=== PATIENT | female | born 1990 | race Caucasian/White ===

== ENCOUNTER 2020-06-10 15:41 | Emergency (ER) | payer OTHER, SELFPAY ==
[2020-06-10 15:57] VITALS: BP 122/67; PULSE 77; RESP 16; TEMP 37.4; O2SAT 100
--- NOTE | 2020-06-10 16:12 | ED.SKABFB ---
HPI - Skin/Abscess/Foreign Bdy General Chief complaint: Skin/Abscess/Foreign Body Stated complaint: insect bite Time Seen by Provider: 06/10/20 16:12 Source: patient Mode of arrival: ambulatory Limitations: no limitations History of Present Illness HPI narrative: Jennifer Dillon is a 29 yo female with PMH of aortic dissection, migraines, HTN, who comes with an insect bite, that occurred 2 weeks ago and getting better. Related Data Allergies Allergy/AdvReac Type Severity Reaction Status Date / Time amoxicillin Allergy Unknown Verified 08/31/17 14:13 sumatriptan Allergy Unknown Verified 08/31/17 14:13 Review of Systems Review of Systems: Narrative: CONSTITUTIONAL: Denies fever, chills, sweats. EYES: Denies visual changes, redness, discharge. ENT: Denies rhinorrhea, congestion, sore throat, otalgia. CARDIOVASCULAR: Denies chest pain, palpitations, edema. RESPIRATORY: Denies dyspnea, wheezing, cough GASTROINTESTINAL: Denies abdominal pain, nausea, vomiting, diarrhea. GENITOURINARY: Denies dysuria, hematuria, abnormal discharge SKIN: Denies rash or itching. One by one area on right upper thigh that is mildly indurated and also paretic NEUROLOGIC: Denies numbness, or focal weakness. PSYCHIATRIC: Denies anxiety or depression. [facility] Surgical History Surgical History (Updated 06/10/20 @ 16:22 by Roxanne Jimenez CNP) History of repair of dissection of abdominal aorta Family History Family History Other CVD (cardiovascular disease) Social History Social History (Updated 06/10/20 @ 16:23 by Roxanne Jimenez CNP) Smoking status: Former smoker Alcohol intake: never Comments At time of signature, I agree with nursing past medical, surgical, social and family history. There is no relevant family history pertinent to the presenting complaint. Exam Narrative: Exam Narrative: GENERAL: This is a well-nourished, well-developed patient, in mild distress. HEAD: normocephalic, atraumatic. EYES: Sclera clear/white. Vision is grossly intact. EARS: External ears normal,. Hearing grossly intact. NOSE: External nose normal without nasal discharge, nares without redness, no rhinorrhea. THROAT: Mucous membranes moist, NECK: Neck supple, CARDIOVASCULAR: Regular rate and rhythm without murmurs, gallops, or rubs. RESPIRATORY: Clear to auscultation. Breath sounds equal bilaterally. No wheezes, rales, or rhonchi. GASTROINTESTINAL: Abdomen soft, SKIN: warm, intact with only 1 area of induration on anterior upper thigh, is paretic, mild tenderness to palpation, no discharge, no fluctuance NEURO: awake, alert, and oriented to person, place and time. There were no obvious focal neurologic abnormalities. Steady gait EXTREMITIES: Normal range of motion. BACK: Nontender without deformity Course Course Emergency Course: Neosporin to lesion on leg cover with Band-Aid Benadryl 25 mg twice daily Follow-up with PCP Vital Signs Vital signs: Vital Signs Temperature 99.3 F 06/10/20 15:57 Pulse Rate 77 06/10/20 15:57 Respiratory Rate 16 06/10/20 15:57 Blood Pressure 122/67 06/10/20 15:57 Pulse Oximetry 100 06/10/20 15:57 Temperature 99.3 F 06/10/20 15:57 Pulse Rate 77 06/10/20 15:57 Respiratory Rate 16 06/10/20 15:57 Blood Pressure 122/67 06/10/20 15:57 Pulse Oximetry 100 06/10/20 15:57 MDM - Skin/Abscess/Foreign Bdy Differential Diagnosis Differential diagnosis: Likely abscess of skin or subcutaneous tissue, cellulitis, contact dermatitis and other Discharge Plan Discharge Clinical Impression: Insect bites Qualifiers: Encounter type: initial encounter Site of insect bite: thigh Laterality: right Qualified Code(s): S70.361A - Insect bite (nonvenomous), right thigh, initial encounter Patient Disposition: Home, Self-Care Condition: Stable Instructions: Insect Bite or Sting (ED) Additional Instructions: Do not scratch area
== END 2020-06-10 16:31 | disposition home or self-care (01) ==
PROVIDERS: Emergency Provider Nurse Practitioner
DX: S70.361A Insect bite (nonvenomous), right thigh, initial encounter (principal); W57.XXXA Bitten or stung by nonvenomous insect and other nonvenomous arthropods, initial encounter; Z87.891 Personal history of nicotine dependence
CPT/HCPCS: 99213; G0463

== ENCOUNTER 2020-09-11 13:00 | Emergency (ER) | payer OTHER, SELFPAY ==
--- NOTE | 2020-09-11 13:03 | ED.GENADULT ---
HPI - General Adult General Chief complaint: Neck Pain/Injury Stated complaint: Neck Pain Time Seen by Provider: 09/11/20 13:03 Source: patient Mode of arrival: ambulatory Limitations: no limitations History of Present Illness HPI narrative: 30-year-old female patient resents the psychiatric with plaints posterior neck pain the past 3 days. Patient states she does have history of degenerative disc disease and cervical spine. Patient states she did not injure her neck that she is aware of. Patient states that the pain does radiate up to the head and has been causing headaches. Denies any numbness or tingling down the legs. Denies any falling. Denies any loss of bowel or bladder control. Related Data Home Medications Medication Instructions Recorded Confirmed escitalopram oxalate mg 09/11/20 lisinopril 09/11/20 metoprolol succinate PO 09/11/20 omeprazole 09/11/20 venlafaxine mg PO 09/11/20 Allergies Allergy/AdvReac Type Severity Reaction Status Date / Time amoxicillin Allergy Unknown Verified 08/31/17 14:13 sumatriptan Allergy Unknown Verified 08/31/17 14:13 Review of Systems Review of Systems: Narrative: CONSTITUTIONAL: Denies fever, chills, or sweats. EYES: Denies visual changes, redness, or discharge. ENT: Denies rhinorrhea, congestion, sore throat, or otalgia. CARDIOVASCULAR: Denies chest pain, palpitations, or edema. RESPIRATORY: Denies cough or dyspnea. GASTROINTESTINAL: Denies abdominal pain, nausea, vomiting, or diarrhea. GENITOURINARY: Denies dysuria or hematuria. SKIN: Denies rash or itching. MUSCULOSKELETAL: Denies back pain, joint pain, or myalgia. Positive neck pain x3 days NEUROLOGIC: Denies headache, numbness, or weakness. PSYCHIATRIC: Denies anxiety or depression. [facility] Past Medical History Medical History (Updated 09/11/20 @ 13:29 by TELMA Hernandez) Anemia Anxiety Aortic dissection Female reproductive system disorder Right ovary removed secondary to ruptured appendectomy HTN (hypertension) IBS (irritable bowel syndrome) Migraine headache Musculoskeletal disorder Plica band right knee Surgical History Surgical History (Updated 09/11/20 @ 13:14 by TELMA Hernandez) History of appendectomy History of repair of dissection of abdominal aorta Hx of cholecystectomy Family History Family History Other CVD (cardiovascular disease) Social History Social History Smoking status: Former smoker Alcohol intake: never Comments At the time of my signature I agree with nursing past medical history, surgical, social, and family history. There is no relevant family history pertinent to the presenting complaint. Exam Narrative: Exam Narrative: GENERAL: Well-appearing, well-nourished, and in no acute distress. HEAD: Normocephalic, atraumatic. EYES: PERRLA and EOMI. ENT: Nares clear, no rhinorrhea or epistaxis. Mucous membranes moist. NECK: Supple, no lymphadenopathy. No surface trauma, patient has obvious spasms noted at the base of bilateral neck but no cervical spine tenderness. Patient does have pain that increases with turning the head to the left. Patient states that the pain when turning the head to the left radiates to the right side of the neck. Trachea midline. No subq emphysema or crepitus. No maliha tenderness, step-offs or deformity to firm Palpation at posterior midline. FROM without limitation or pain, normal flexion, extension,Lateral bending, rotation, and axial load. CHEST: Clear to auscultation. No respiratory distress. HEART: Regular rate and rhythm. No murmur heard. Normal peripheral pulses. ABDOMEN: Soft, nontender, nondistended, normal active bowel sounds. EXTREMITIES: Normal range of motion. No edema. SKIN: Warm, dry, no rash. NEURO: No focal deficits. Alert and oriented x3. Course Vital Signs Vital signs: Vital Signs Temperature 37
[2020-09-11 13:11] VITALS: BP 126/57; PULSE 89; RESP 16; TEMP 37.5; O2SAT 100
== END 2020-09-11 13:34 | disposition home or self-care (01) ==
PROVIDERS: Emergency Provider Nurse Practitioner Family
DX: G24.3 Spasmodic torticollis (principal); Z87.891 Personal history of nicotine dependence; I10 Essential (primary) hypertension; F41.9 Anxiety disorder, unspecified; M50.30 Other cervical disc degeneration, unspecified cervical region
CPT/HCPCS: 99213; G0463

== ENCOUNTER 2022-02-20 17:41 | Emergency (ER) | payer OTHER, SELFPAY ==
[2022-02-20 17:50] VITALS: BP 96/63; PULSE 80; RESP 16; TEMP 37.3; O2SAT 99
--- NOTE | 2022-02-20 18:18 | ED.URI ---
HPI - URI/Sore Throat General Chief Complaint: Upper Respiratory Infection Stated Complaint: Runny Nose, Sore Throat Time Seen by Provider: 02/20/22 17:58 Source: patient and RN notes reviewed Mode of arrival: ambulatory Limitations: no limitations History of Present Illness HPI Narrative: Patient presents today complaining of illness for the past 2 weeks to include headache, sore throat, congestion rhinorrhea, cough, fatigue. States she has had a fever up to 101, last was last night. She finished a Medrol Dosepak last week and that was prescribed by her PCP. She has also had a recent negative COVID-19 test, and was told by her PCP to come into urgent care for strep test. She has been taking Tylenol and Coricidin with mild relief. MD elicited complaint: fever, cough and sore throat Related Data Home Medications Medication Instructions Recorded Confirmed escitalopram oxalate 20 mg PO DAILY 09/11/20 02/20/22 lisinopril 20 mg PO DAILY 09/11/20 02/20/22 omeprazole 40 mg PO DAILY 09/11/20 02/20/22 venlafaxine 75 mg PO DIRECTED 09/11/20 02/20/22 metoprolol tartrate 100 mg PO DAILY 02/20/22 02/20/22 prochlorperazine maleate 10 mg PO DIRECTED 02/20/22 02/20/22 trazodone 50 mg PO DIRECTED 02/20/22 02/20/22 Allergies Allergy/AdvReac Type Severity Reaction Status Date / Time amoxicillin Allergy Unknown Rash Verified 02/20/22 17:43 sumatriptan Allergy Unknown Rash Verified 02/20/22 17:43 Review of Systems Review of Systems: CONSTITUTIONAL: Denies body aches, chills, or sweats.+ Fever, fatigue EYES: Denies visual changes, redness, or discharge. ENT: Denies otalgia.+ Sore throat, congestion, rhinorrhea CARDIOVASCULAR: Denies chest pain, palpitations, or edema. RESPIRATORY: Denies dyspnea.+ Cough GASTROINTESTINAL: Denies abdominal pain, nausea, vomiting, or diarrhea. GENITOURINARY: Denies dysuria or hematuria. SKIN: Denies rash, itching, or wounds. MUSCULOSKELETAL: Denies back pain, joint pain, or myalgia. NEUROLOGIC: Denies numbness, tingling, or weakness.+ Headache PSYCH: Denies depression or anxiety. [facility] Past Medical History Medical History (Updated 02/20/22 @ 18:21 by Marisol Gould, TELMA, ) Anemia Anxiety Aortic dissection Female reproductive system disorder Right ovary removed secondary to ruptured appendectomy HTN (hypertension) IBS (irritable bowel syndrome) Migraine headache Musculoskeletal disorder Plica band right knee Surgical History Surgical History (Updated 02/20/22 @ 18:19 by Marisol Gould, [employer], ) H/O adenoidectomy History of appendectomy History of repair of dissection of abdominal aorta Hx of cholecystectomy Family History Family History Other CVD (cardiovascular disease) Social History Social History Smoking status: Former smoker Alcohol intake: never Comments At time of signature, I have reviewed and agree with nursing past medical, surgical, social and family history unless otherwise noted. Please see nursing chart for further information. There is no relevant family history pertinent to the presenting complaint Exam Narrative: GENERAL: Well-appearing, well-nourished, and in no acute distress. HEAD: Normocephalic, atraumatic. EYES: EOMI. No redness or drainage. Conjunctivae normal. ENT: Mucous membranes pink and moist. Nares clear. No rhinorrhea. TMs normal bilaterally. Throat normal. Uvula midline. NECK: Normal AROM. Supple. No lymphadenopathy. CHEST: No respiratory distress. Clear to auscultation. HEART: Regular rate and rhythm. No murmur appreciated. Normal peripheral pulses. EXTREMITIES: Normal range of motion. No edema. SKIN: Warm, dry, no rash. Capillary refill normal. Normal skin turgor. NEURO: No focal deficits. Alert and oriented x3. Gait steady. PSYCH: Normal affect. No signs of depression or anxiety. Course Co
== END 2022-02-20 18:31 | disposition home or self-care (01) ==
PROVIDERS: Emergency Provider Nurse Practitioner
DX: J02.0 Streptococcal pharyngitis (principal); Z87.891 Personal history of nicotine dependence; I10 Essential (primary) hypertension; F41.9 Anxiety disorder, unspecified
CPT/HCPCS: 87880; 99213; G0463

== ENCOUNTER 2022-09-21 16:42 | Emergency (ER) | payer OTHER, SELFPAY ==
[2022-09-21 16:54] VITALS: BP 141/82; PULSE 130; RESP 16; TEMP 36.9; O2SAT 98
--- NOTE | 2022-09-21 17:11 | ED.URI ---
HPI - URI/Sore Throat General Chief Complaint: Upper Respiratory Infection Stated Complaint: sore throat /sob Time Seen by Provider: 09/21/22 17:16 Source: patient and RN notes reviewed Mode of arrival: ambulatory Limitations: no limitations History of Present Illness HPI Narrative: 32 y/o female with history of aortic dissection, HTN presented for c/o sore throat, cough, and chest tightness with cough. States it feels like she cannot take a deep breath. Endorses bilateral ear pain and body aches. Denies sick contacts. Has not taken anything for symptoms. MD elicited complaint: cough Related Data Home Medications Medication Instructions Recorded Confirmed omeprazole 40 mg capsule,delayed 40 mg PO DAILY 09/11/20 02/20/22 release venlafaxine 75 mg capsule,extended 75 mg PO DIRECTED 09/11/20 02/20/22 release 24 hr metoprolol tartrate 100 mg tablet 100 mg PO DAILY 02/20/22 02/20/22 prochlorperazine maleate 10 mg 10 mg PO DIRECTED 02/20/22 02/20/22 tablet trazodone 50 mg tablet 50 mg PO DIRECTED 02/20/22 02/20/22 aspirin 81 mg chewable tablet 09/21/22 dicyclomine 10 mg capsule mg 09/21/22 ondansetron 4 mg disintegrating mg 09/21/22 tablet Allergies Allergy/AdvReac Type Severity Reaction Status Date / Time amoxicillin Allergy Unknown Rash Verified 09/21/22 16:45 sumatriptan Allergy Unknown Rash Verified 09/21/22 16:45 Review of Systems Review of Systems: CONSTITUTIONAL: Endorses malaise, chills, sweats, fever EYES: Denies visual changes, redness, or discharge ENT: per HPI CARDIOVASCULAR: Denies chest pain, palpitations, edema RESPIRATORY: Reports cough, post nasal drainage. Denies dyspnea GASTROINTESTINAL: Denies abdominal pain, nausea, vomiting, diarrhea SKIN: Denies rash or itching MUSCULOSKELETAL: Endorses myalgia NEUROLOGIC: Denies headache PMFSH Past Medical History Medical History Anemia Anxiety Aortic dissection Female reproductive system disorder Right ovary removed secondary to ruptured appendectomy HTN (hypertension) IBS (irritable bowel syndrome) Migraine headache Musculoskeletal disorder Plica band right knee Surgical History Surgical History H/O adenoidectomy History of appendectomy History of repair of dissection of abdominal aorta Hx of cholecystectomy Family History Family History Other CVD (cardiovascular disease) Social History Social History Smoking status: Former smoker Alcohol intake: never Exam Narrative: GENERAL: Ill-appearing, nontoxic EYES: PERRLA, conjunctivae clear ENT: Mucous membranes moist. TMs pearly brothers with dull light reflex bilaterally; no tragal tenderness. Oropharynx erythematous without lesions or exudate, no drooling, no hoarseness, no trismus, uvula midline. NECK: Supple. No lymphadenopathy CHEST: Clear to auscultation, breath sounds equal. No wheezing, rhonchi, rales, or stridor. No respiratory distress, speaks in full sentences. HEART: Regular rate and rhythm. No murmur heard. SKIN: Warm, dry, no rash. NEURO: Alert and oriented x3. Course Course Emergency Course: Patient is aware of diagnosis, understands and agrees to treatment plan. Anticipatory guidance given. Patient agrees to follow-up as directed and is aware of reasons to seek care at the emergency department. Portions of this record may have been created with voice recognition software Level of Care: Express Care Visit Vital Signs Vital signs: Vital Signs Temperature 98.4 F 09/21/22 16:54 Pulse Rate 130 H 09/21/22 16:54 Respiratory Rate 16 09/21/22 16:54 Blood Pressure 141/82 H 09/21/22 16:54 Pulse Oximetry 98 09/21/22 16:54 Oxygen Delivery Room Air 09/21/22 16:54 Temperature 98.4 F 09/21/22 16:54
== END 2022-09-21 17:45 | disposition home or self-care (01) ==
PROVIDERS: Emergency Provider Nurse Practitioner Family
DX: J06.9 Acute upper respiratory infection, unspecified (principal); Z20.822 Contact with and (suspected) exposure to COVID-19; I10 Essential (primary) hypertension; F41.9 Anxiety disorder, unspecified
CPT/HCPCS: 87081; 87426; 87804; 87880; 99213; C9803; G0463

== ENCOUNTER 2023-01-18 17:06 | Emergency (ER) | payer OTHER, SELFPAY ==
--- NOTE | ~2023-01-18 | XR_ITS ---
EXAM: XR ankle RT min 3V, XR foot RT min 3V DATE: 01/18/2023 17:34 HISTORY: STEPPED ON OBJECT, ANKLE SWELLING . COMPARISON: None available. FINDINGS: Normal mineralization. No fracture or dislocation. No lytic or blastic lesion. Joint space s are maintained. No erosion or periosteal change. Soft tissues within normal limits. IMPRESSION: No acute osseous finding in the right foot or ankle. Reviewed, dictated and finalized at location [facility] IMPRESSION: No acute osseous finding in the right foot or ankle.
--- NOTE | 2023-01-18 17:08 | ED.LOWEXIN ---
HPI - Extremity Injury (Lower) General Chief Complaint: Extremity Injury, Lower Stated Complaint: Right/Ankle Foot Pain Time Seen by Provider: 01/18/23 17:16 Source: patient, RN notes reviewed and old records reviewed Mode of arrival: ambulatory Limitations: no limitations History of Present Illness HPI Narrative: 32-year-old female presents to the [facility] with right ankle swelling laterally and bruising to the bottom of the right foot. Patient states that she stepped on a with a couple of days ago it is now bruised, swollen. And states she does not know why her lateral ankle is swollen. No erythema, increased warmth. Positive pedal pulse. Sensation intact. Capillary refill under 2 seconds Onset (ago): day(s) Related Data Home Medications Medication Instructions Recorded Confirmed omeprazole 40 mg capsule,delayed 40 mg PO DAILY 09/11/20 02/20/22 release venlafaxine 75 mg capsule,extended 75 mg PO DIRECTED 09/11/20 02/20/22 release 24 hr metoprolol tartrate 100 mg tablet 100 mg PO DAILY 02/20/22 02/20/22 aspirin 81 mg chewable tablet 09/21/22 dicyclomine 10 mg capsule mg 09/21/22 famotidine 20 mg tablet mg 01/18/23 Allergies Allergy/AdvReac Type Severity Reaction Status Date / Time amoxicillin Allergy Unknown Rash Verified 01/18/23 17:16 sumatriptan Allergy Unknown Rash Verified 01/18/23 17:16 levofloxacin [From Levaquin] Allergy Other Verified 01/18/23 17:16 Review of Systems Review of Systems: All systems reviewed & are unremarkable except as noted in HPI and below Constitutional: Constitutional: Reports no additional constitutional complaints Eyes: Eyes: Reports no additional eye complaints ENT: Reports system reviewed and no additional complaints, except as documented Cardiovascular: Cardiovascular: Reports no additional cardiovascular complaints, Denies chest pain and Denies dyspnea Respiratory: Respiratory: Reports no additional respiratory complaints, Denies chest congestion, Denies cough and Denies dyspnea Gastrointestinal: Gastrointestinal: Reports no additional gastrointestinal complaints, Denies abdominal pain, Denies nausea and Denies vomiting Musculoskeletal: Musculoskeletal: Reports as per HPI and Reports joint swelling (Right lateral ankle) Integumentary/Breasts: Skin/Breast: Reports system reviewed and no additional complaints, except as docu Neurologic: Reports system reviewed and no additional complaints, except as documented Psychiatric: Psychiatric: Reports no additional psychiatric complaints Allergic/Immunologic: Allergic/Immunologic: Reports no additional allergic/immunologic complaints PMFSH Past Medical History Medical History Anemia Anxiety Aortic dissection Female reproductive system disorder Right ovary removed secondary to ruptured appendectomy HTN (hypertension) IBS (irritable bowel syndrome) Migraine headache Musculoskeletal disorder Plica band right knee Surgical History Surgical History H/O adenoidectomy History of appendectomy History of repair of dissection of abdominal aorta Hx of cholecystectomy Family History Family History Other CVD (cardiovascular disease) Social History Social History Smoking status: Former smoker Alcohol intake: never Comments At the time of my signature, I reviewed and agree with the nursing past medical, surgical, social, and family history. There is no relevant family history pertinent to the patient complaint. Exam Const: General: cooperative, healthy appearing, comfortable, no acute distress, well developed, alert and well nourished Nutritional Appearance: well nourished Orientation/consciousness: patient oriented x3 Limitations: no limitations HENMT: Head: normal to inspection Ea
[2023-01-18 17:14] VITALS: BP 118/83; PULSE 108; RESP 18; TEMP 36.4; O2SAT 100
[2023-01-18 17:17] VITALS: BP 118/83; PULSE 108; RESP 18; TEMP 36.4; O2SAT 100
== END 2023-01-18 18:06 | disposition home or self-care (01) ==
PROVIDERS: Emergency Provider Nurse Practitioner
DX: S93.401A Sprain of unspecified ligament of right ankle, initial encounter (principal); S96.911A Strain of unspecified muscle and tendon at ankle and foot level, right foot, initial encounter; S90.31XA Contusion of right foot, initial encounter; W22.8XXA Striking against or struck by other objects, initial encounter; I10 Essential (primary) hypertension; F41.9 Anxiety disorder, unspecified; Z87.891 Personal history of nicotine dependence
CPT/HCPCS: 73610; 73630; 99213; G0463

== ENCOUNTER 2023-05-02 16:26 | Emergency (ER) | payer OTHER, SELFPAY ==
[2023-05-02 16:34] VITALS: BP 110/74; PULSE 86; RESP 16; TEMP 36.5; O2SAT 98
--- NOTE | 2023-05-02 16:34 | ED.URI ---
HPI - URI/Sore Throat General Chief Complaint: Upper Respiratory Infection Stated Complaint: cough,sore throat Time Seen by Provider: 05/02/23 16:34 Source: patient, RN notes reviewed and old records reviewed Mode of arrival: ambulatory Limitations: no limitations History of Present Illness HPI Narrative: 32-year-old female presents to the [facility] with complaints cough for 2 days, sinus congestion, runny nose. Sinus pressure. Reports fevers of 100. Has tried [id number] products. Onset (ago): day(s) (2) Related Data Home Medications Medication Instructions Recorded Confirmed omeprazole 40 mg capsule,delayed 40 mg PO DAILY 09/11/20 05/02/23 release venlafaxine 75 mg capsule,extended 75 mg PO DIRECTED 09/11/20 05/02/23 release 24 hr metoprolol tartrate 100 mg tablet 100 mg PO DAILY 02/20/22 05/02/23 Allergies Allergy/AdvReac Type Severity Reaction Status Date / Time amoxicillin Allergy Unknown Rash Verified 05/02/23 16:31 levofloxacin [From Levaquin] Allergy Unknown Other Verified 05/02/23 16:31 sumatriptan Allergy Unknown Rash Verified 05/02/23 16:31 Review of Systems Review of Systems: All systems reviewed & are unremarkable except as noted in HPI and below Constitutional: Constitutional: Reports no additional constitutional complaints Eyes: Eyes: Reports no additional eye complaints ENT: Reports as per HPI Cardiovascular: Cardiovascular: Reports no additional cardiovascular complaints, Denies chest pain and Denies dyspnea Respiratory: Respiratory: Reports as per HPI, Reports chest congestion, Reports cough and Denies dyspnea Gastrointestinal: Gastrointestinal: Reports no additional gastrointestinal complaints, Denies abdominal pain, Denies nausea and Denies vomiting Musculoskeletal: Musculoskeletal: Reports no additional musculoskeletal complaints Integumentary/Breasts: Skin/Breast: Reports system reviewed and no additional complaints, except as docu Neurologic: Reports system reviewed and no additional complaints, except as documented Psychiatric: Psychiatric: Reports no additional psychiatric complaints Allergic/Immunologic: Allergic/Immunologic: Reports no additional allergic/immunologic complaints PMFSH Past Medical History Medical History Anemia Anxiety Aortic dissection Female reproductive system disorder Right ovary removed secondary to ruptured appendectomy HTN (hypertension) IBS (irritable bowel syndrome) Migraine headache Musculoskeletal disorder Plica band right knee Surgical History Surgical History H/O adenoidectomy History of appendectomy History of repair of dissection of abdominal aorta Hx of cholecystectomy Family History Family History Other CVD (cardiovascular disease) Social History Social History Smoking status: Former smoker Alcohol intake: never Comments At the time of my signature, I reviewed and agree with the nursing past medical, surgical, social, and family history. There is no relevant family history pertinent to the patient complaint. Exam Const: General: cooperative, comfortable, no acute distress, well developed, alert, ill appearing acutely (Mild) and well nourished Nutritional Appearance: well nourished and obese Orientation/consciousness: patient oriented x3 Limitations: no limitations HENMT: Head: normal to inspection Ears: hearing grossly normal bilaterally and external ears normal Face/Nose/Sinus: Normal external nose present, Normal nares present, Abnormal mucous membranes and turbinates present boggy bilateral, Nasal discharge present clear, normal facial exam, face symmetric and sinus tenderness Face and sinus: normal facial exam Mouth: Yes Normal oral and palatal mucosa present, Yes lip normal and
== END 2023-05-02 17:17 | disposition home or self-care (01) ==
PROVIDERS: Emergency Provider Nurse Practitioner; PCP Family Medicine
DX: J40 Bronchitis, not specified as acute or chronic (principal); J32.9 Chronic sinusitis, unspecified; Z20.822 Contact with and (suspected) exposure to COVID-19; Z87.891 Personal history of nicotine dependence; I10 Essential (primary) hypertension; F41.9 Anxiety disorder, unspecified
CPT/HCPCS: 87426; 87804; 99213; C9803; G0463

== ENCOUNTER → 2023-05-18 15:55 | Outpatient (CLI) | payer OTHER, SELFPAY ==
--- NOTE | ~2023-05-18 | XR_ITS ---
EXAMINATION: XR chest 2V Exam Date/Time: 05/18/2023 16:10 CDT HISTORY: COUGH X 3 WEEKS, HX AORTIC DISSECTION IN 2013 Comparison: . RESULT: Lines, tubes, and devices: Surgical clips/occlusion device injecting over the left upper mediastinum . Intact sternotomy wires. Lungs and pleura: Linear and subsegmental left basilar opacities. Mild left costophrenic angle blunt ing. Cardiomediastinal silhouette: Prominent aortic knob. Other: No acute osseous or upper abdominal finding. IMPRESSION: 1. Prominent aortic knob, likely related to history of aortic dissection, if there symptoms of chroni c chest pain, comparison studies should be sought to evaluate for interval change. Acute chest pain s ymptoms would warrant more urgent evaluation, to include CTA of the chest. 2. Presumed left basilar scar/atelectasis and lateral pleural scarring, infection is not excluded. Reviewed, dictated and finalized at location K. IMPRESSION: 1. Prominent aortic knob, likely related to history of aortic dissection, if th ere symptoms of chronic chest pain, comparison studies should be sought to eval uate for interval change. Acute chest pain symptoms would warrant more urgent e valuation, to include CTA of the chest. 2. Presumed left basilar scar/atelectasis and lateral pleural scarring, infecti on is not excluded.
== END ==
PROVIDERS: PCP Family Medicine; Visit Provider Family Medicine
DX: R05.9 Cough, unspecified (principal); R91.8 Other nonspecific abnormal finding of lung field
CPT/HCPCS: 71046

== ENCOUNTER 2023-07-21 17:47 | Emergency (ER) | payer OTHER, SELFPAY ==
--- NOTE | ~2023-07-21 | XR_ITS ---
EXAMINATION: XR foot RT min 3V DATE: 07/21/2023 18:26 INDICATION: Pain at the right fourth and fifth toes post injury TECHNIQUE: Dorsoplantar, two oblique and lateral views of the right foot were obtained. COMPARISON: None. FINDINGS: Alignment is normal. No fracture. Joint spaces are normal. Soft tissues are unremarkable. No right an kle joint effusion. IMPRESSION: 1. Negative right foot radiographs. Reviewed, dictated and finalized at location A.
[2023-07-21 18:09] VITALS: BP 126/82; PULSE 77; RESP 18; TEMP 37.3; O2SAT 100
--- NOTE | 2023-07-21 18:23 | ED.LOWEXIN ---
HPI - Extremity Injury (Lower) General Chief Complaint: Extremity Injury, Lower Stated Complaint: right toe pain Source: patient and RN notes reviewed History of Present Illness HPI Narrative: 33-year-old female presents to urgent care with complaints of right toe pain. Patient states yesterday morning she dropped a block of ice on it after it fell through a bag. Denies any numbness or tingling. Denies any other symptoms. Patient has taken Tylenol. Related Data Home Medications Medication Instructions Recorded Confirmed omeprazole 40 mg capsule,delayed 40 mg PO DAILY 09/11/20 05/02/23 release venlafaxine 75 mg capsule,extended 75 mg PO DIRECTED 09/11/20 05/02/23 release 24 hr metoprolol tartrate 100 mg tablet 100 mg PO DAILY 02/20/22 05/02/23 aspirin 81 mg chewable tablet 07/21/23 dicyclomine 10 mg capsule mg 07/21/23 fluticasone propionate 110 inhalation 07/21/23 mcg/actuation HFA aerosol inhaler (Flovent HFA) hyoscyamine sulfate 0.125 mg mg 07/21/23 sublingual tablet irbesartan 300 mg tablet mg 07/21/23 montelukast 10 mg tablet mg 07/21/23 ondansetron 4 mg disintegrating mg 07/21/23 tablet Allergies Allergy/AdvReac Type Severity Reaction Status Date / Time amoxicillin Allergy Unknown Rash Verified 05/02/23 16:31 levofloxacin [From Levaquin] Allergy Unknown Other Verified 05/02/23 16:31 sumatriptan Allergy Unknown Rash Verified 05/02/23 16:31 diphenhydramine Allergy Other Verified 07/21/23 18:07 [From Benadryl] Review of Systems Review of Systems: CONSTITUTIONAL: Denies fever, chills, or sweats. EYES: Denies visual changes, redness, or discharge. ENT: Denies otalgia and sore throat CARDIOVASCULAR: Denies chest pain, palpitations, or edema. RESPIRATORY: Denies cough or dyspnea. GASTROINTESTINAL: Denies abdominal pain, nausea, vomiting, or diarrhea. GENITOURINARY: Denies dysuria or hematuria. SKIN: Denies rash or itching. MUSCULOSKELETAL: right toe pain NEUROLOGIC: Denies headache, numbness, or weakness. Pertinent positives per HPI. [facility] Past Medical History Medical History Anemia Anxiety Aortic dissection Female reproductive system disorder Right ovary removed secondary to ruptured appendectomy HTN (hypertension) IBS (irritable bowel syndrome) Migraine headache Musculoskeletal disorder Plica band right knee Surgical History Surgical History H/O adenoidectomy History of appendectomy History of repair of dissection of abdominal aorta Hx of cholecystectomy Family History Family History Other CVD (cardiovascular disease) Social History Social History Smoking status: Former smoker Alcohol intake: never Comments At the time of my signature, I reviewed and agree with the nursing past medical, surgical, social, and family history. There is no relevant family history pertinent to the patient complaint. Exam Narrative: GENERAL: This is a well-nourished, well-developed patient, in no apparent distress. HEAD: normocephalic, atraumatic. EYES: Sclera clear/white. Vision is grossly intact. EARS: External ears normal, auditory canals clear and without drainage. Hearing grossly intact. NOSE: External nose normal with no obvious nasal discharge, nares without redness, no rhinorrhea. THROAT: Mucous membranes moist, posterior pharynx clear. NECK: Neck supple, non-tender without lymphadenopathy, masses or thyromegaly. CARDIOVASCULAR: Regular rate RESPIRATORY: no respiratory distress SKIN: ecchymosis noted to right 4th toe NEURO: awake, alert, and oriented to person, place and time. There were no obvious focal neurologic abnormalities. EXTREMITIES: right 4th toe swelling and ecchymosis BACK: Nontender without deformity or crepitus. No f
== END 2023-07-21 18:49 | disposition home or self-care (01) ==
PROVIDERS: Emergency Provider Nurse Practitioner Family
DX: S90.121A Contusion of right lesser toe(s) without damage to nail, initial encounter (principal); W20.8XXA Other cause of strike by thrown, projected or falling object, initial encounter; I10 Essential (primary) hypertension; F41.9 Anxiety disorder, unspecified; Z87.891 Personal history of nicotine dependence
CPT/HCPCS: 73630; 99213; G0463

== ENCOUNTER 2023-11-18 17:37 | Emergency (ER) | payer OTHER, SELFPAY ==
[2023-11-18 17:49] VITALS: BP 121/74; PULSE 84; RESP 16; TEMP 37.2; O2SAT 99
--- NOTE | 2023-11-18 17:52 | ED.SKABFB ---
HPI - Skin/Abscess/Foreign Bdy General Chief complaint: Skin/Abscess/Foreign Body Stated complaint: rash on legs, ankles,right eye swollen Time Seen by Provider: 11/18/23 17:52 Source: patient Mode of arrival: ambulatory Limitations: no limitations History of Present Illness HPI narrative: Jennifer is a 33-year-old female patient presenting to the clinic today with complaints of a rash on her legs and ankles and right eye is swollen. States this has been going off and on for 1 week. No changes in environment, detergents, soaps, lotions, shampoos, food, or medications. No one else at home has the rash. States that it started on her legs and has gradually gotten worse. Related Data Home Medications Medication Instructions Recorded Confirmed omeprazole 40 mg capsule,delayed 40 mg PO DAILY 09/11/20 11/18/23 release venlafaxine 75 mg capsule,extended 75 mg PO DIRECTED 09/11/20 11/18/23 release 24 hr metoprolol tartrate 100 mg tablet 100 mg PO DAILY 02/20/22 11/18/23 aspirin 81 mg chewable tablet 81 mg DIRECTED 07/21/23 11/18/23 dicyclomine 10 mg capsule 10 mg DIRECTED 07/21/23 11/18/23 fluticasone propionate 110 110 inh inhalation DIRECTED 07/21/23 11/18/23 mcg/actuation HFA aerosol inhaler (Flovent HFA) hyoscyamine sulfate 0.125 mg 0.125 mg DIRECTED 07/21/23 11/18/23 sublingual tablet irbesartan 300 mg tablet 300 mg DIRECTED 07/21/23 11/18/23 montelukast 10 mg tablet 10 mg DIRECTED 07/21/23 11/18/23 ondansetron 4 mg disintegrating 4 mg DIRECTED 07/21/23 11/18/23 tablet Allergies Allergy/AdvReac Type Severity Reaction Status Date / Time amoxicillin Allergy Unknown Rash Verified 05/02/23 16:31 levofloxacin [From Levaquin] Allergy Unknown Other Verified 05/02/23 16:31 sumatriptan Allergy Unknown Rash Verified 05/02/23 16:31 diphenhydramine Allergy Other Verified 11/18/23 18:01 [From Benadryl] Review of Systems Review of Systems: Pertinent positives per HPI. Patient denies any fever, chills, headache, visual changes, dizziness, cough, runny nose, sore throat, shortness of breath, chest pain, palpitations, nausea, vomiting, diarrhea, constipation, abdominal pain, or any urinary issues. PMFSH Past Medical History Medical History Anemia Anxiety Aortic dissection Female reproductive system disorder Right ovary removed secondary to ruptured appendectomy HTN (hypertension) IBS (irritable bowel syndrome) Migraine headache Musculoskeletal disorder Plica band right knee Surgical History Surgical History H/O adenoidectomy History of appendectomy History of repair of dissection of abdominal aorta Hx of cholecystectomy Family History Family History Other CVD (cardiovascular disease) Social History Social History Smoking status: Former smoker Alcohol intake: never Comments At the time of my signature, I reviewed and agree with the nursing past medical, surgical, social, and family history. There is no relevant family history pertinent to the patient complaint. Exam Narrative: General: Well-developed, well nourished, in no apparent distress Head: Normocephalic, atraumatic. Cardio: Regular rate and rhythm, s1 and s2 normal, no murmur appreciated. Resp: Clear to auscultation bilaterally, no rhonchi, rales, wheezing or rubs. Integumentary: [place], warm, and dry, intact without lesion, skin very dry with red rash where patient has been scratching to her ankles, legs, and on the right side her face. Mild swelling noted to the right cheek and periorbital without inflammation or erythema Course Course Emergency Course: Portions of this record may have been created with voice recognition software. Level of Care: Express Care V
== END 2023-11-18 18:09 | disposition home or self-care (01) ==
PROVIDERS: Emergency Provider Nurse Practitioner Family
DX: L30.9 Dermatitis, unspecified (principal); Z87.891 Personal history of nicotine dependence; I10 Essential (primary) hypertension; F41.9 Anxiety disorder, unspecified; Z79.82 Long term (current) use of aspirin
CPT/HCPCS: 99213; G0463

== ENCOUNTER 2025-11-29 11:54 | Emergency (ER) | payer OTHER, SELFPAY ==
[2025-11-29 12:05] VITALS: BP 176/92; PULSE 103; RESP 18; TEMP 37.1; O2SAT 98
--- NOTE | 2025-11-29 12:23 | ED.HA ---
HPI - Headache General Chief Complaint: Headache Stated Complaint: nose bleeds / with headache all on R side Time Seen by Provider: 11/29/25 12:33 Mode of arrival: ambulatory Limitations: no limitations History of Present Illness HPI Narrative: 35-year-old female presents concern for 3 day history of intermittent nose bleeds on the right side and right-sided sinus headache. She reports she has about 3 nosebleeds today and the headache increases during that time. [place] recently return from [place] to [place]. She denies having any chronic sinus congestion, nasal drainage during that time or now. She reports history of migraines. She has been taking Tylenol for her pain. She reports the nose bleeds last about 10 minutes. She reports the headaches are not severe. She denies thunderclap headache, altered mental status or neurologic deficits. She reports she took her blood pressure medication today MD elicited complaint: headache Related Data Home Medications ?Medication ?Instructions ?Recorded ?Confirmed ?Last Taken ?Type omeprazole 40 mg capsule,delayed 40 mg PO DAILY 09/11/20 11/29/25 Unknown History release metoprolol tartrate 100 mg tablet 100 mg PO DAILY 02/20/22 11/29/25 Unknown History aspirin 81 mg chewable tablet 81 mg PO DIRECTED 07/21/23 11/29/25 Unknown History dicyclomine 10 mg capsule 10 mg PO DIRECTED 07/21/23 11/29/25 Unknown History hyoscyamine sulfate 0.125 mg 0.125 mg PO DIRECTED 07/21/23 11/29/25 Unknown History sublingual tablet irbesartan 300 mg tablet 300 mg PO DIRECTED 07/21/23 11/29/25 Unknown History ondansetron 4 mg disintegrating 4 mg PO DIRECTED 07/21/23 11/29/25 Unknown History tablet Allergies Allergy/AdvReac Type Severity Reaction Status Date / Time amoxicillin Allergy Unknown Rash Verified 11/29/25 11:58 levofloxacin (From Levaquin) Allergy Unknown Other Verified 11/29/25 11:58 sumatriptan Allergy Unknown Rash Verified 11/29/25 11:58 diphenhydramine (From Allergy Other Verified 11/29/25 11:58 Benadryl) Review of Systems Review of Systems: CONSTITUTIONAL: Denies malaise, chills, sweats, or fever. EYES: Denies visual changes, redness, or discharge. ENT: Denies rhinorrhea, congestion, sinus pain, otalgia or sore throat. CARDIOVASCULAR: Denies chest pain, palpitations, or edema. RESPIRATORY: Denies cough or dyspnea. GASTROINTESTINAL: Denies abdominal pain, nausea, vomiting, diarrhea, bloody, or mucous stools. GENITOURINARY: Denies dysuria or hematuria. SKIN: Denies rash or itching. MUSCULOSKELETAL: Denies back pain, joint pain, or myalgia. NEUROLOGIC: Denies numbness, weakness, or headache. PSYCHIATRIC: Denies anxiety or depression. All systems reviewed & are unremarkable except as noted in HPI and below PMFSH Past Medical History Medical History Anemia Anxiety Aortic dissection Female reproductive system disorder Right ovary removed secondary to ruptured appendectomy HTN (hypertension) IBS (irritable bowel syndrome) Migraine headache Musculoskeletal disorder Plica band right knee Surgical History Surgical History H/O adenoidectomy History of appendectomy History of repair of dissection of abdominal aorta Hx of cholecystectomy Family History Family History Other CVD (cardiovascular disease) Social History Social History Smoking status: Former smoker Alcohol intake: never Comments At time of signature, agree with nursing past medical, surgical, social and family history. There is no relevant family history pertinent to the presenting complaint Exam Narrative: GENERAL: Well-appearing, well-nourished, and in no acute distress. HEAD: Normocephalic, atraumatic. EYES: PERRLA, sclera clear, and EOMI. No nystagmus. ENT: Nares clear, turbinates pink, no rhinorrhea or epistaxis. Mucous membranes moist. TM pearly brothers with sharp light reflex bilaterally; no tragal tenderness. Oropharynx without erythema or lesions. Tonsils not enlarged and without exudate. NECK: Supple. No lymphadenopathy. No jugular venous distension, thyromegaly, or carotid bruits. Carotids were easily palpable bilaterally. CHEST: No respiratory distress. Clear to auscultation. No bony deformities, no asymmetry. Speaks in full sentences. HEART: Regular rate and rhythm. No murmur heard. Normal peripheral pulses. ABDOMEN: Soft, nontender, nondistended, normal active bowel sounds, no palpable masses. EXTREMITIES: Normal range of motion. No edema. Normal strength and sensation. SKIN: Warm, dry, no visible rash. NEURO: Alert and oriented x3. No focal deficits. Cranial nerves II through XII grossly intact PSYCH: Normal mood and affect Course Course Emergency Course: Patient is aware of diagnosis, understands and agrees to treatment plan. Anticipatory guidance given. Patient agrees to follow-up as directed and is aware of reasons to seek care at the emergency department. Portions of this record may have been created with voice recognition software Level of Care: [facility] Visit Vital Signs Vital signs: Vital Signs Temperature 98.8 F 11/29/25 12:05 Pulse Rate 103 H 11/29/25 12:05 Respiratory Rate 18 11/29/25 12:05 Blood Pressure 176/92 H 11/29/25 12:05 Pulse Oximetry 98 11/29/25 12:05 Oxygen Delivery Room Air 11/29/25 12:05 Temperature 98.8 F 11/29/25 12:05 Pulse Rate 103 H 11/29/25 12:05 Respiratory Rate 18 11/29/25 12:05 Blood Pressure 176/92 H 11/29/25 12:05 Pulse Oximetry 98 11/29/25 12:05 Oxygen Delivery Room Air 11/29/25 12:05 MDM Differential Diagnosis Differential Diagnosis: I evaluated this patient in the [facility]. History is obtained from patient who is an independent historian and physical exam was performed.? Available medical records were reviewed. ? Exam findings and relevant testing show no acute concerns or changes; patient is non-toxic appearing and is in no distress. ? Differential diagnosis and treatment plan were discussed with the patient. Patient agrees with discussion and after shared medical decision making agrees with plan of care. All questions were answered to the patient's satisfaction. Patient is appropriate for outpatient treatment and follow-up. Discharge Plan Discharge Clinical Impression: Epistaxis Patient Disposition: Home Condition: Stable Instructions: Antibiotic Form, Nosebleed (ED) Additional Instructions: Use medication as directed for the next 1-2 days. Use nasal saline frequently throughout the day. Increased humidity in her home. Treat your headaches as you typically treat her migraines. If you have severe symptoms such as thunderclap headache my other severe concerns you should go to the emergency room. Please follow-up with your primary doctor. Patient Language: Khmer Prescriptions: New oxymetazoline [Afrin (oxymetazoline)] 0.05 % spray,non-aerosol 2 spray intranasal Q12H PRN (Reason: nasal congestion) 3 Days Qty: 15 0RF Nasal Mist 0.9 % aerosol,spray 2 spray intranasal Q4H PRN (Reason: dry nasal passages) Qty: 126 0RF No Action omeprazole 40 mg capsule,delayed release(DR/EC) 40 mg PO DAILY aspirin 81 mg tablet,chewable 81 mg PO DIRECTED ondansetron 4 mg tablet,disintegrating 4 mg PO DIRECTED hyoscyamine sulfate 0.125 mg tablet, sublingual 0.125 mg PO DIRECTED dicyclomine 10 mg capsule 10 mg PO DIRECTED irbesartan 300 mg tablet 300 mg PO DIRECTED metoprolol tartrate 100 mg tablet 100 mg PO DAILY albuterol sulfate 90 mcg/actuation HFA aerosol inhaler 2 puff inhalation QID PRN (Reason: shortness of breath or wheezing) Qty: 6.7 0RF (DME) Aerochamber MV Spacer See Rx Instructions .Route Qty: 1 0RF Rx Instructions: As directed Follow-up/Referrals: UNKNOWN,DOCTOR [Primary Care Provider] Time of Disposition: 13:13
[2025-11-29] MEDS: PHENYLEPHRINE 1% NA SPR (*BKC) 15 ML BTL 1 SPRAY NASAL (12:51)
== END 2025-11-29 13:18 | disposition home or self-care (01) ==
PROVIDERS: Emergency Provider Nurse Practitioner
DX: R04.0 Epistaxis (principal); I10 Essential (primary) hypertension; Z79.82 Long term (current) use of aspirin
CPT/HCPCS: 99213; A9270; G0463